=== PATIENT | male | born 1965 | race Hispanic/Latino ===

== ENCOUNTER 2021-04-11 15:03 | Outpatient (CLI) | payer OTHER, SELFPAY ==
--- NOTE | ~2021-04-11 | MR_ITS ---
EXAMINATION: MR IAC wo/w con DATE: 04/11/2021 16:07 INDICATION: Other abnormal auditory perceptions, right ear. TECHNIQUE: Magnetic resonance imaging (MRI) of the brain, brainstem, and internal auditory canals was performed without and with 17 mm MultiHance intravenous contrast. Sequences included sagittal and ax ial T1-weighted FSE, axial diffusion-weighted FS EPI, axial T2*-weighted GRE, axial T2-weighted FLAIR Propeller, axial T2-weighted Propeller, small dlywf-wk-pbhh coronal FIESTA, small dnkmy-no-nqno tierra nal T1-weighted FSE, and small bvhhe-jv-gjzn axial T1-weighted SPGR. Postcontrast sequences included axial T1-weighted FSE, small wkbrl-ui-pshs coronal T1-weighted FSE, and small wjcbj-zk-scwl axial T1- weighted SPGR. Apparent diffusion coefficient (ADC) maps were created. COMPARISON: None. FINDINGS: There is no intracranial hemorrhage, acute infarction, or abnormal intracranial mass lesion . The ventricles are normal in size. There is mucosal thickening in the paranasal sinuses. There is d ependent fluid in right maxillary sinus. The internal auditory canals and inner and middle ears are n ormal. The mastoid air cells are normal. The orbits are normal. IMPRESSION: 1. Normal brain. Reviewed, dictated and finalized at location A. OR DEPARTMENT IMPRESSION: 1. Normal brain.
[2021-04-11 15:33] LABS: Estimated Glomerular Filt Rate > 60
== END 2021-04-11 15:04 ==
DX: H93.291 Other abnormal auditory perceptions, right ear (principal)
CPT/HCPCS: 70553; A9577

== ENCOUNTER 2021-05-07 07:28 | Outpatient (CLI) | payer OTHER, SELFPAY ==
--- NOTE | ~2021-05-07 | MR_ITS ---
EXAMINATION: MR hip RT wo con DATE: 05/07/2021 08:47 INDICATION: Right hip pain TECHNIQUE: Magnetic resonance imaging (MRI) of the affected hip was performed without intravenous co ntrast. Sequences included full-field axial PD-weighted FS FSE and T1-weighted FSE, coronal of the pe lvis with PD-weighted FS FSE, small field of view of the affected hip with axial PD-weighted FS FSE, sagittal PD-weighted FS FSE and coronal PD weighted FS FSE. Additional radial T1-weighted FGR orient ed orthogonal to the acetabular rim were obtained for evaluation of the labrum. COMPARISON: None FINDINGS: Bones/labrum/cartilage: Alignment is normal. No fracture, avascular necrosis or pathologic marrow replacing process. Labrum is normal. Mild right hip osteoarthritis with mild nonuniform partial thickness cartilage loss with p osterior superior and posterior predominance. Fluid: Symmetric physiologic amount of fluid within both hip joints. Small amount of fluid at the gluteus mi nimus and medius bursa consistent with mild bursitis. Soft tissues: Normal and symmetric muscle bulk and signal in the pelvis and visualized proximal thighs. Mild to mod erate right gluteus minimus tendinopathy without discrete tear. The iliopsoas, remaining bilateral gl uteal and proximal hamstring tendons are normal. A few diverticula along the sigmoid colon without ad jacent inflammatory change to suggest diverticulitis. Normal appendix. Limited evaluation of visceral organs of the pelvis is otherwise unremarkable. No pathologically enlarged pelvic/inguinal lymphade nopathy. IMPRESSION: 1. Mild right gluteus medius and minimus bursitis with mild to moderate right gluteus minimus minimus tendinopathy without discrete tear. 2. Mild right hip osteoarthritis. Reviewed, dictated and finalized at location A. ICAL EDITOR IMPRESSION: 1. Mild right gluteus medius and minimus bursitis with mild to moderate right g luteus minimus minimus tendinopathy without discrete tear. 2. Mild right hip osteoarthritis.
== END 2021-05-07 07:29 | disposition home or self-care (01) ==
LOC: ANHIMG 07:33
PROVIDERS: Visit Provider Orthopaedic Surgery
DX: M25.551 Pain in right hip (principal); M71.551 Other bursitis, not elsewhere classified, right hip; M16.11 Unilateral primary osteoarthritis, right hip
CPT/HCPCS: 73721

== ENCOUNTER 2021-11-17 16:00 | Outpatient (CLI) | payer OTHER, SELFPAY ==
--- NOTE | ~2021-11-17 | MR_ITS ---
EXAMINATION: MR cervical spine wo con DATE: 11/17/2021 16:31 INDICATION: Neck pain. TECHNIQUE: Magnetic resonance imaging (MRI) of the cervical spine was performed without intravenous c ontrast. Sequences included sagittal T2-weighted FSE, sagittal T2-weighted FS FSE, sagittal T1-weight ed FSE, axial MERGE, and axial T2-weighted FSE. COMPARISON: Cervical spine MRI 09/15/2015 FINDINGS: There is mild kyphosis of cervical spine. Vertebral body heights are normal. There are real ges of anterior fusion procedure at C5-C6 with healed interbody bone graft and anterior plate and scr ews. There is moderately decreased disc height at C4-C5 and severely decreased disc height at C6-C7 w ith endplate remodeling. The spinal cord signal intensity is normal. The following disc levels are sp ecifically discussed: C2-C3: The disc does not extend beyond the endplate margin. There is no uncovertebral joint osteoarth ritis. There is mild bilateral facet joint osteoarthritis. There is no neural foraminal stenosis. The re is no central canal stenosis. C3-C4: The disc is bulging. There is mild bilateral uncovertebral joint osteoarthritis. There is mild right and moderate left facet joint osteoarthritis. There is mild bilateral neural foraminal stenosi s. There is mild central canal stenosis with ventral indentation of the spinal cord. C4-C5: The disc is bulging. There is severe bilateral uncovertebral joint osteoarthritis. There is mo derate bilateral facet joint osteoarthritis. There is moderate bilateral neural foraminal stenosis. T here is mild central canal stenosis with ventral indentation of the spinal cord. C5-C6: There is mild right uncovertebral joint hypertrophy. There is no facet joint osteoarthritis. T here is mild right neural foraminal stenosis. There is mild central canal stenosis. C6-C7: The disc is bulging. There is severe bilateral uncovertebral joint osteoarthritis. There is m oderate bilateral facet joint osteoarthritis. There is moderate right and mild left neural foraminal stenosis. There is mild central canal stenosis with ventral indentation of the spinal cord. C7-T1: The disc does not extend beyond the endplate margin. There is no uncovertebral joint osteoarth ritis. There is moderate right and mild left facet joint osteoarthritis. There is mild right neural f oraminal stenosis. There is no central canal stenosis. IMPRESSION: 1. Severe cervical spondylosis, worsened from 09/15/2015. 2. Anterior fusion procedure at C5-C6. Reviewed, dictated and finalized at location A.
== END 2021-11-17 16:01 ==
LOC: MICIMG 16:01
PROVIDERS: PCP Internal Medicine
DX: M54.2 Cervicalgia (principal); M47.812 Spondylosis without myelopathy or radiculopathy, cervical region; Z98.1 Arthrodesis status
CPT/HCPCS: 72141

== ENCOUNTER 2023-08-08 15:47 | Outpatient (CLI) | payer OTHER, SELFPAY ==
--- NOTE | ~2023-08-08 | XR_ITS ---
EXAMINATION: XR shoulder RT min 2V DATE: 08/08/2023 16:01 INDICATION: Right shoulder pain. TECHNIQUE: 4 views of right shoulder were obtained. COMPARISON: None. FINDINGS: Bone alignment is normal. No fracture. Glenohumeral joint is normal. There is severe acromi oclavicular joint osteoarthritis. IMPRESSION: 1. Severe right acromioclavicular joint osteoarthritis. Reviewed, dictated and finalized at location A.
== END 2023-08-08 15:48 ==
LOC: MICIMG 15:48
PROVIDERS: PCP Chiropractor Rehabilitation; Visit Provider Chiropractor Rehabilitation
DX: M25.511 Pain in right shoulder (principal); M19.011 Primary osteoarthritis, right shoulder
CPT/HCPCS: 73030

== ENCOUNTER 2023-08-09 15:00 | Outpatient (CLI) | payer OTHER, SELFPAY ==
--- NOTE | ~2023-08-09 | MR_ITS ---
EXAMINATION: MR shoulder RT wo con DATE: 08/09/2023 15:43 INDICATION: Right shoulder pain. TECHNIQUE: Magnetic resonance imaging (MRI) of the right shoulder was performed without intravenous c ontrast. Sequences included axial PD-weighted FS FSE, coronal oblique PD-weighted FS FSE and T2-weigh alison FS FSE, and sagittal oblique T2-weighted FS FSE and T1-weighted FSE. COMPARISON: Right shoulder radiographs 08/08/2023 FINDINGS: Coracoacromial arch: The acromion undersurface is curved in morphology (type II). There is severe acromioclavicular joint osteoarthritis including inferiorly directed osteophytes. There is mild subacromial/subdeltoid bursit is. Rotator cuff: There is moderate supraspinatus and infraspinatus tendinopathy. There is an articular-sided, partial- thickness tear of supraspinatus and infraspinatus tendons measuring 14 mm anterior to posterior by 2 mm proximal to distal by up to 50% tendon thickness. There is a ganglion cyst in infraspinatus at the myotendinous junction measuring 5.8 x 1.2 x 1.0 cm. Teres minor tendon is normal. There is mild subs capularis tendinopathy. There is no asymmetric fatty atrophy of rotator cuff muscle bellies. Biceps tendon and glenoid labrum: Biceps tendon is in bicipital groove. Intra-articular biceps tendon is normal. The glenoid labrum is normal. Fluid: There is no glenohumeral joint effusion. Bones/cartilage: Glenoid cartilage is normal. Humeral head cartilage is normal. IMPRESSION: 1. Articular-sided, partial-thickness tear involving supraspinatus and infraspinatus tendons. 2. 5.8 x 1.2 x 1.0 cm ganglion cyst in infraspinatus at the myotendinous junction. 3. Severe acromioclavicular joint osteoarthritis. 4. Mild subacromial/subdeltoid bursitis. Reviewed, dictated and finalized at location A. IMPRESSION: 1. Articular-sided, partial-thickness tear involving supraspinatus and infraspi natus tendons. 2. 5.8 x 1.2 x 1.0 cm ganglion cyst in infraspinatus at the myotendinous juncti on. 3. Severe acromioclavicular joint osteoarthritis. 4. Mild subacromial/subdeltoid bursitis.
== END 2023-08-09 15:01 ==
PROVIDERS: PCP Chiropractor Rehabilitation; Visit Provider Chiropractor Rehabilitation
DX: M75.111 Incomplete rotator cuff tear or rupture of right shoulder, not specified as traumatic (principal); M67.411 Ganglion, right shoulder; M19.011 Primary osteoarthritis, right shoulder; M75.51 Bursitis of right shoulder
CPT/HCPCS: 73221